=== PATIENT | female | born 1985 | race Caucasian/White ===

== ENCOUNTER 2017-05-28 07:54 | Day surgery (SDC) | payer OTHER ==
[~2017-05-28 07:54] MED LIST: ATROPINE 1 MG/10 ML SYRINGE IV; DIPHENHYDRAMINE 50 MG INJ IV; EPHEDrine SULFATE 50 MG/5 ML SYG IV; FENTAnyl 50 MCG/ML VIAL IV; HYDROmorphONE (0.2 MG/ML) 10ML SYG IV; LABETALOL HCL 20MG INJ IV; MIDAZOLAM 1 MG/ML 2 ML INJ IV; OXYCODONE/ACETAMINOPHEN (5/325) TAB PO; hydrALAzine 20 MG INJ IV; morphine (1 MG/ML) 10ML SYRINGE IV
[2017-05-28] MEDS ORDERED: LIDOCAINE 2% (SDV) 5 ML INJ ×2 (08:38→09:26)
[2017-05-28] MEDS ORDERED: MIDAZOLAM 1 MG/ML 2 ML INJ ×2 (08:38→09:26)
[2017-05-28] MEDS ORDERED: GLYCOPYRROLATE 0.4 MG INJ ×2 (08:38→09:26)
[2017-05-28] MEDS ORDERED: ROCURONIUM 50 MG INJ ×2 (08:38→09:26)
[2017-05-28] MEDS ORDERED: PROPOFOL 20 ML ×2 (08:38→09:26)
[2017-05-28] MEDS ORDERED: NEOSTIGMINE 3 MG/3 ML SYRINGE ×2 (08:38→09:26)
[2017-05-28] MEDS ORDERED: FENTAnyl 50 MCG/ML VIAL (08:38)
[2017-05-28] MEDS ORDERED: DEXAMETHASONE 4 MG/ML 1 ML INJ (08:50)
[2017-05-28] MEDS: BUPIVACAINE 0.25% (MPF) 30 ML INJ (10:06)
[2017-05-28] MEDS ORDERED: FLUMAZENIL 0.5 MG INJ (10:12)
[2017-05-28] MEDS ORDERED: HYDROCODONE/APAP (5/325) TAB PO (10:30)
[2017-05-28] MEDS: HYDROmorphONE (0.2 MG/ML) 10ML SYG IV ×4 (10:47→11:16)
[2017-05-28] MEDS: MEPERIDINE 25 MG INJ IV (10:48)
[2017-05-28] MEDS: ONDANSETRON 4 MG INJ IV (10:48)
[2017-05-28] MEDS ORDERED: CEFAZOLIN 1 GM INJ (10:58)
[2017-05-28] MEDS ORDERED: SUCCINYLCHOLINE CHLORIDE 100 MG/5 ML SYG IV (10:58)
[2017-05-28] MEDS ORDERED: CEFAZOLIN 2 GM/50 ML (PMX) 50 ML IVPB (11:00)
[2017-05-28] MEDS ORDERED: SOD CHLORIDE 0.9% 1,000 ML IV (11:00)
== END 2017-05-28 12:23 | disposition home or self-care (01) ==
LOC: SDS 07:54
DX: K80.10 Calculus of gallbladder with chronic cholecystitis without obstruction (principal)
CPT/HCPCS: 47562; 88304